=== PATIENT | male | born 1960 | race American Indian/Alaskan Native ===

== ENCOUNTER 2017-01-17 12:29 | Outpatient (CLI) | payer MEDICAID ==
[2017-01-17] MEDS ORDERED: NACL ONE (12:51)
--- NOTE | 2017-01-17 16:29 | Cat Scan Report ---
CT LUMBAR SPINE WITH AND WITHOUT CONTRAST INDICATION: Low back pain. COMPARISON: 07/12/2016. FINDINGS: Lumbar spine CT performed before and after IV contrast. Axial, sagittal and coronal CT reconstructions obtained. Normal conus medullaris appearing to terminate behind L1-L2. NoRMAL vertebral body stature. Approximately 1 mm of anterolisthesis of L4 over L5 questioned. Streak artifact from a horizontal right SI joint fusion screw again limits exam. Right SI joint degenerative bridging noted. Nonaneurysmal abdominal aorta with few atherosclerotic changes. Retroaortic left renal vein. No suspicious abnormal enhancement. On the obtained axial images: T12-L1 is unremarkable. L1-L2, L2-L3 and L3-L4 demonstrate bilateral facet degenerative spurring posteriorly. No spinal stenosis or significant neural foraminal narrowing. AP thecal sac caliber is approximately 1.3 cm, axial image 93, series 4 with preserved posterior epidural fat. L4-L5 demonstrates moderate to severe bilateral facet degenerative changes with spurring, vacuum phenomenon and numerous small lucencies/erosions. Slight diffuse disc bulge minimally indents the thecal sac ventrally with slight undercutting of both neural foramina. AP thecal sac caliber is approximately 1.2 cm axial image 113, series 4. L5-S1 demonstrates mild disc narrowing with vacuum phenomenon. Mild diffuse disc bulge may partly be ventral epidural. Slight bilateral neural foraminal undercutting. AP thecal sac caliber approximately 0.9 cm. Mild bilateral facet degenerative changes noted. CONCLUSION: No acute CT abnormality with various incidental findings, as above, including multilevel lumbar degenerative changes, greatest inferiorly in this patient with stable right SI joint fusion. Thank you for the opportunity to participate in this patient's care.
== END 2017-01-17 12:30 | disposition home or self-care (01) ==
LOC: CT 12:29
PROVIDERS: ATTEND Internal Medicine
DX: M47.896 Other spondylosis, lumbar region (principal)
CPT/HCPCS: 72133; Q9967

== ENCOUNTER 2019-05-27 13:59 | Emergency (ER) | payer MEDICAID ==
--- NOTE | 2019-05-27 14:21 | Emergency Department Report ---
Blank Doc - Documentation Documentation: This is a 59-year-old male that presents with epigastric abdominal pain. This initial assessment/diagnostic orders/clinical plan/treatment(s) is/are subject to change based on patient's health status, clinical progression and re- assessment by fellow clinical providers in the ED. Further treatment and workup at subsequent clinical providers discretion. Patient/guardians urged not to elope from the ED as their condition may be serious if not clinically assessed and managed. Initial orders include: 1- Patient sent to [facility] for further evaluation and treatment 2- labs 3- EKG
[2019-05-27 15:00] LABS: Basophils # (Auto) 0.1 K/mm3 (0.0-0.1); Basophils % (Auto) 1.3 % (0.0-1.8); Eosinophils # (Auto) 0.1 K/mm3 (0.0-0.4); Eosinophils % (Auto) 1.7 % (0.0-4.3); Hematocrit 46.3 % (35.5-45.6); Hemoglobin 15.7 gm/dl (11.8-15.2); Lymphocytes # (Auto) 1.6 K/mm3 (1.2-5.4); Lymphocytes % (Auto) 25.4 % (13.4-35.0); Mean Corpuscular HGB Conc 34 % (32-34); Mean Corpuscular Volume 100 fl (84-94); Monocytes # (Auto) 0.4 K/mm3 (0.0-0.8); Monocytes % (Auto) 6.1 % (0.0-7.3); Platelet Count 262 K/mm3 (140-440); Red Blood Count 4.65 M/mm3 (3.65-5.03); Red Cell Distribution Width 13.6 % (13.2-15.2)
[2019-05-27 15:08] LABS: INR 1.06 (0.87-1.13)
[2019-05-27 15:09] LABS: Partial Thromboplastin Time 29.2 Sec. (24.2-36.6)
[2019-05-27 15:15] LABS: Alanine Aminotransferase 18 units/L (7-56); Albumin 4.1 g/dL (3.9-5); BUN/Creatinine Ratio 8; Blood Urea Nitrogen 8 mg/dL (9-20); Calcium 8.8 mg/dL (8.4-10.2); Hemolysis Index 24
--- NOTE | 2019-05-27 15:21 | XRay Report ---
CHEST 2 VIEWS INDICATION / CLINICAL INFORMATION: Chest Pain. COMPARISON: None available. FINDINGS: SUPPORT DEVICES: None. HEART / MEDIASTINUM: The heart size and pulmonary vasculature are normal. The aorta is normal in maira kaz. LUNGS / PLEURA: No significant pulmonary or pleural abnormality. No pneumothorax. ADDITIONAL FINDINGS: There is mild mid to lower thoracic spondylosis. IMPRESSION: No acute findings. Signer Name: Mark Amaya MD Signed: 05/27/2019 2:17 PM Workstation Name: [id number]
[2019-05-27] MEDS ORDERED: ZOFRAN IV ONE (16:12)
[2019-05-27] MEDS ORDERED: MORPHINE IV ONE (16:12)
--- NOTE | 2019-05-27 17:43 | Cat Scan Report ---
CT abdomen pelvis w con INDICATION / CLINICAL INFORMATION: Severe epigastric pain for 4 days. TECHNIQUE: The patient received 100 cc Omnipaque [address] scans at this location are performed using CT dose reduction for ALARA by means of automated exposure control. COMPARISON: 07/12/2016. FINDINGS: ABDOMEN: The liver, spleen, gallbladder, bile ducts, pancreas, adrenal glands and bowel demonstrate n o significant abnormality. There small bilateral simple renal cysts. No adenopathy is seen. There are mild atherosclerotic calcifications involving the abdominal aorta and its branches. There is a moder ate calcified plaque at the origin of the right renal artery. The left renal vein is retroaortic. The lung bases are clear. PELVIS: The prostate gland is mildly enlarged. The distal ureters and urinary bladder are normal. A n ormal appendix is present and there is no evidence of diverticulitis. I do not identify a hernia. No abnormal mass or fluid collection is seen. There is a long metallic screw traversing the right SI kalia nt superiorly. Sclerotic changes involving both iliac bones inferiorly are chronic and unchanged. The re is moderate degenerative disc disease at L5-S1. IMPRESSION: No acute intra-abdominal disease is identified. Signer Name: Mark Amaya MD Signed: 05/27/2019 4:39 PM Workstation Name: [id number]
--- NOTE | 2019-05-27 18:03 | Emergency Department Report ---
HPI - General Chief Complaint: Chest Pain Time Seen by Provider: 05/27/19 14:18 - HPI HPI: This is a 59-year-old male that presents with epigastric abdominal pain. Patient described pain as a burning, epigastric area, he rates the pain as severe, and is accompanied by nausea, but no vomiting or diarrhea. He admits to daily usage of alcohol. Patient has not taking any medication at home for his symptoms. He states food as an exacerbating factor. He denies any alleviating factors, he denies any recent travel, unusual food, he denies any sick contacts. ED Past Medical Hx - Past Medical History Hx Hypertension: No Hx Diabetes: Yes Additional medical history: Chronic back pain - Surgical History Additional Surgical History: hip repair; lumbar spine surgery after an accident - Social History Smoking Status: Current Every Day Smoker Substance Use Type: Alcohol, Marijuana - Medications Home Medications: Home Medications Medication Instructions Recorded Confirmed Last Taken Type Atenolol [Tenormin] 50 mg PO DAILY 04/01/14 04/01/14 Unknown History Cyclobenzaprine [Flexeril] 10 mg PO Q8H PRN #21 tablet 04/01/14 Unknown Rx Hydrocodone/Ibuprofen [Vicoprofen 1 each PO Q6H PRN #20 tablet 04/01/14 Unknown Rx 200-7.5 mg Tab] Oxycodone HCl [OxyCONTIN] 04/01/14 04/01/14 Unknown History Famotidine [Pepcid] 40 mg PO QHS #30 tablet 05/27/19 Unknown Rx ED Review of Systems ROS: Stated complaint: LOWER CHEST PAIN Other details as noted in HPI Comment: All other systems reviewed and negative Eyes: denies: eye pain ENT: denies: ear pain Respiratory: denies: cough Cardiovascular: denies: chest pain Gastrointestinal: abdominal pain, nausea, vomiting. denies: diarrhea, consti pation, hematemesis Musculoskeletal: denies: back pain Physical Exam - Physical Exam Vital Signs: Vital Signs 05/27/19 14:22 Temperature 97.1 F L Pulse Rate 88 Respiratory 16 Rate Blood Pressure 141/81 O2 Sat by Pulse 97 Oximetry Physical Exam: Physical Exam: - General Limitations: No Limitations General appearance: alert, in no apparent distress. - Head Head exam: Present: atraumatic, normocephalic - Eye Eye exam: Present: normal appearance - ENT ENT exam: Present: mucous membranes moist - Neck Neck exam: Present: normal inspection - Respiratory Respiratory exam: Present: normal lung sounds bilaterally. Absent: respiratory distress - Cardiovascular Cardiovascular Exam: Present: normal rhythm. Absent: systolic murmur, diastolic murmur, rubs, gallop - GI/Abdominal GI/Abdominal exam: Present: soft, normal bowel sounds - Extremities Exam Extremities exam: Present: normal inspection - Back Exam Back exam: Present: normal inspection - Neurological Exam Neurological exam: Present: alert, oriented X3 - Psychiatric Psychiatric exam: normal affect and mood - Skin Skin exam: Present: warm, dry, intact, normal color. Absent: rash ED Course Vital Signs 05/27/19 14:22 Temperature 97.1 F L Pulse Rate 88 Respiratory 16 Rate Blood Pressure 141/81 O2 Sat by Pulse 97 Oximetry ED Medical Decision Making - Lab Data Result diagrams: 05/27/19 14:34 05/27/19 14:34 - EKG Data Rate: normal - EKG Data When compared to previous EKG there are: previous EKG unavailable Interpretation: no acute changes, other 05/27/19 18:03 EKG shows sinus rhythm rate 69, right bundle branch block. abnormal EKG - Medical Decision Making This is a 59-year-old male that presents with epigastric abdominal pain. Patient described pain as a burning, epigastric area, he rates the pain as severe, and is accompanied by nausea, but no vomiting or diarrhea. He admits to daily usage of alcohol. Patient has not taking any medication at home for his symptoms. He states food as an exacerbating factor. He denies any alleviating factors, he denies any recent travel, unusual food, he denies any sick contacts. he was given famotidine iv, ns iv, which resolved his sx. He will be d/c f/u with pcp. Critical care attestation.: If time is entered above; I have spent that time in minutes in the direct care of this critically ill patient, excluding procedure time. ED Disposition Clinical Impression: Gastritis Qualifiers: Gastritis type: other gastritis Chronicity: acute Gastritis bleeding: without bleeding Qualified Code(s): K29.00 - Acute gastritis without bleeding Disposition: - TO HOME OR SELFCARE Is pt being admited?: No Does the pt Need Aspirin: No Condition: Stable Instructions: Gastritis (ED), Gastroesophageal Reflux in Children (ED), Diet for Ulcers and Gastritis (ED) Prescriptions: Famotidine [Pepcid] 40 mg PO QHS #30 tablet Referrals: RYANN WETZEL MD [Primary Care Provider] - 3-5 Days
[2019-05-27 18:15] VITALS: BP 171/86
== END 2019-05-27 18:15 | disposition home or self-care (01) ==
LOC: ED 13:59
DX: K29.70 Gastritis, unspecified, without bleeding (principal); E11.9 Type 2 diabetes mellitus without complications; M54.9 Dorsalgia, unspecified; G89.29 Other chronic pain; F17.200 Nicotine dependence, unspecified, uncomplicated; F12.10 Cannabis abuse, uncomplicated; R11.2 Nausea with vomiting, unspecified; Z98.890 Other specified postprocedural states
CPT/HCPCS: 36415; 71046; 74177; 80053; 82962; 83690; 84484; 85025; 85610; 85730; 93005; 93010; 96374; 96375; 99285; J2270; J2405; Q9967

== ENCOUNTER 2021-08-29 08:06 | Observation (INO) | payer MEDICAID ==
--- NOTE | 2021-08-29 08:19 | Emergency Department Report ---
ED General Adult HPI - General Chief complaint: Weakness Stated complaint: BILATERAL HAND NUMBNESS/WEAKNESS PUI?: No Time Seen by Provider: 08/29/21 08:17 Source: patient, RN notes reviewed, old records reviewed Mode of arrival: Ambulatory Limitations: Physical Limitation - History of Present Illness Initial comments: The patient was evaluated in the emergency department for symptoms described in the history of present illness. He/she was evaluated in the context of the global COVID-19 pandemic, which necessitated consideration that the patient might be at risk for infection with the virus that causes COVID-19. Instituti onal protocols and algorithms that pertain to the evaluation of patients at risk for COVID-19 are in a state of rapid change based on information released by regulatory bodies including the CDC and federal and state organizations. These policies and algorithms were followed during the patient's care in the emergency department. Please note that these policies, procedures and recommendations changed on a rapid basis. Primary CARE doctor: Dr Ramona Hall The patient is a 61-year-old gentleman. He is right-hand dominant, and has a past medical history of diabetes, hypertension, and tobacco use. He is COVID-19 vaccinated. The patient presents to the ER today with complaints of bilateral nontraumatic forearm numbness. He denies weakness. He denies headache, neck pain, chest pain. He endorses that he feels like his breathing is "off", but he denies exertional shortness of breath, vomiting, diaphoresis, and Covid symptomatology. He denies focal extremity weakness. He denies bladder or bowel retention incontinence as well as saddle anesthesia. He denies lower extremity complaints. He also reports that he feels unsteady on his feet for about a week. -: Gradual, days(s) Location: left, right, upper extremity Consistency: constant Improves with: none Worsens with: none - Related Data Home Medications Medication Instructions Recorded Confirmed Last Taken Oxycodone HCl [OxyCONTIN] 04/01/14 04/01/14 Unknown atenoloL [Tenormin] 50 mg PO DAILY 04/01/14 04/01/14 Unknown Previous Rx's Medication Instructions Recorded Last Taken Type Cyclobenzaprine [Flexeril] 10 mg PO Q8H PRN #21 tablet 04/01/14 Unknown Rx Hydrocodone/Ibuprofen [Vicoprofen 1 each PO Q6H PRN #20 tablet 04/01/14 Unknown Rx 200-7.5 mg Tab] Famotidine [Pepcid] 40 mg PO QHS #30 tablet 05/27/19 Unknown Rx Allergies Allergy/AdvReac Type Severity Reaction Status Date / Time acetaminophen [From Tylenol] Allergy Nausea Verified 08/29/21 08:07 pseudoephedrine HCl Allergy Nausea Verified 08/29/21 08:07 [From Sudafed] ED Review of Systems ROS: Stated complaint: BILATERAL HAND NUMBNESS/WEAKNESS Other details as noted in HPI Constitutional: denies: fever Eyes: denies: vision change ENT: denies: epistaxis Respiratory: cough (Chronic cough), shortness of breath Cardiovascular: denies: chest pain Gastrointestinal: denies: nausea, vomiting, hematemesis, melena, hematochezia Genitourinary: denies: dysuria Musculoskeletal: denies: back pain Neurological: numbness, paresthesias, abnormal gait. denies: headache, weakness ED Past Medical Hx - Past Medical History Hx Hypertension: No Hx Diabetes: Yes Additional medical history: Chronic back pain - Surgical History Additional Surgical History: hip repair; lumbar spine surgery after an accident - Social History Smoking Status: Current Every Day Smoker Substance Use Type: Alcohol, Marijuana - Medications Home Medications: Home Medications Medication Instructions Recorded Confirmed Last Taken Type Cyclobenzaprine [Flexeril] 10 mg PO Q8H PRN #21 tablet 04/01/14 Unknown Rx Hydrocodone/Ibuprofen [Vicoprofen 1 each PO Q6H PRN #20 tablet 04/01/14 Unknown Rx 200-7.5 mg Tab] Oxycodone HCl [OxyCONTIN] 04/01/14 04/01/14 Unknown History atenoloL [Tenormin] 50 mg PO DAILY 04/01/14 04/01/14 Unknown History Famotidine [Pepcid] 40 mg PO QHS #30 tablet 05/27/19 Unknown Rx ED Physical Exam - General Limitations: Physical Limitation General appearance: alert, in no apparent distress - Head Head exam: Present: atraumatic, normocephalic - Eye Eye exam: Present: normal appearance, EOMI, other (Visual acuity intact to finger counting, color perception, reading at a close distance). Absent: nystagmus - ENT ENT exam: Present: normal exam, normal orophraynx, mucous membranes moist, normal external ear exam - Neck Neck exam: Present: normal inspection, full ROM. Absent: tenderness, meningismus - Respiratory Respiratory exam: Present: normal lung sounds bilaterally. Absent: respiratory distress, wheezes, rales, rhonchi, stridor, decreased breath sounds - Cardiovascular Cardiovascular Exam: Present: normal rhythm, normal heart sounds. Absent: tachycardia, irregular rhythm, systolic murmur, diastolic murmur, rubs, gallop - GI/Abdominal GI/Abdominal exam: Present: soft. Absent: distended, tenderness, guarding, rebound, rigid, pulsatile mass - Rectal Rectal exam: Present: deferred - Extremities Exam Extremities exam: Present: normal inspection, full ROM, other (2+ pulses noted in the bilateral upper and lower extremities. There is no palpable cord. negative Homans sign. Muscular compartments are soft. The pelvis is stable.). Absent: pedal edema, calf tenderness - Back Exam Back exam: Present: normal inspection. Absent: tenderness, CVA tenderness (R), CVA tenderness (L), paraspinal tenderness, vertebral tenderness - Neurological Exam Neurological exam: Present: alert, oriented X3, abnormal gait (Patient walks w ith a slightly broad-based gait. There is a positive Romberg examination. He is not able to perform tandem gait), motor sensory deficit (Decreased sensation to light touch in the bilateral forearms distal.), reflexes normal (Downgoing plantar reflexes bilaterally), other (There is no facial droop. The tongue is midline. EOMI. Sensation intact to light touch V1, V2, V3 bilaterally. 5 out of 5 strength bilateral upper and lower extremities. Sensation is intact to proprioception in the bilateral upper and lower extremities. Decreased sensation to light touch bilat) - Psychiatric Psychiatric exam: Present: normal affect, normal mood - Skin Skin exam: Present: warm, dry, intact, normal color. Absent: rash ED Course Vital Signs 08/29/21 08:13 Temperature 98.0 F Pulse Rate 65 Respiratory 20 Rate Blood Pressure 148/57 O2 Sat by Pulse 99 Oximetry ED Medical Decision Making - Lab Data Result diagrams: 08/29/21 09:00 08/29/21 09:00 Vital Signs 08/29/21 08:13 Temperature 98.0 F Pulse Rate 65 Respiratory 20 Rate Blood Pressure 148/57 O2 Sat by Pulse 99 Oximetry Lab Results 08/29/21 08/29/21 08/29/21 Range/Units 09:00 09:00 09:00 WBC 4.9 (4.5-11.0) K/mm3 RBC 4.35 (3.65-5.03) M/mm3 Hgb 14.8 (11.8-15.2) gm/dl Hct 43.3 (35.5-45.6) % MCV 100 H (84-94) fl MCH 34 H (28-32) pg MCHC 34 (32-34) % RDW 13.2 (13.2-15.2) % Plt Count 241 (140-440) K/mm3 Lymph % (Auto) 28.1 (13.4-35.0) % Robertson % (Auto) 10.2 H (0.0-7.3) % Eos % (Auto) 6.3 H (0.0-4.3) % Baso % (Auto) 0.3 (0.0-1.8) % Lymph # (Auto) 1.4 (1.2-5.4) K/mm3 Robertson # (Auto) 0.5 (0.0-0.8) K/mm3 Eos # (Auto) 0.3 (0.0-0.4) K/mm3 Baso # (Auto) 0.0 (0.0-0.1) K/mm3 Seg Neutrophils % 55.1 (40.0-70.0) % Seg Neutrophils # 2.7 (1.8-7.7) K/mm3 PT 12.5 (12.2-14.9) Sec. INR 0.89 (0.87-1.13) APTT 34.6 (24.2-36.6) Sec. Thrombin Time 15.8 (15.1-19.6) Sec. Sodium 138 (137-145) mmol/L Potassium 5.0 (3.6-5.0) mmol/L Chloride 101.6 (98-107) mmol/L Carbon Dioxide 25 (22-30) mmol/L Anion Gap 16 mmol/L BUN 10 (9-20) mg/dL Creatinine 0.8 (0.8-1.3) mg/dL Estimated GFR > 60 ml/min BUN/Creatinine Ratio 13 % Glucose 109 H (75-100) mg/dL Calcium 9.8 (8.4-10.2) mg/dL Magnesium (1.7-2.3) mg/dL Total Bilirubin 0.30 (0.1-1.2) mg/dL AST 27 (5-40) units/L ALT 24 (7-56) units/L Alkaline Phosphatase 82 (35-129) units/L Total Creatine Kinase 463 H (55-170) units/L CK-MB (CK-2) 11.7 H (0.0-4.0) ng/mL CK-MB (CK-2) Rel Index 2.5 (0-4) Troponin T < 0.010 (0.00-0.029) ng/mL Total Protein 8.0 (6.3-8.2) g/dL Albumin 4.6 (3.9-5) g/dL Albumin/Globulin Ratio 1.4 % TSH (0.270-4.200) mlU/mL Urine Color (Yellow) Urine Turbidity (Clear) Urine pH (5.0-7.0) Ur Specific [place] (1.003-1.030) Urine Protein (Negative) mg/dL Urine Glucose (UA) (Negative) mg/dL Urine Ketones (Negative) mg/dL Urine Blood (Negative) Urine Nitrite (Negative) Urine Bilirubin (Negative) Urine Urobilinogen (<2.0) mg/dL Ur Leukocyte Esterase (Negative) Urine WBC (Auto) (0.0-6.0) /HPF Urine RBC (Auto) (0.0-6.0) /HPF U Epithel Cells (Auto) (0-13.0) /HPF Urine Mucus /HPF Urine Opiates Screen Urine Methadone Screen Ur Barbiturates Screen Ur Phencyclidine Scrn Ur Amphetamines Screen U Benzodiazepines Scrn Urine Cocaine Screen Plasma/Serum Alcohol (0-0.07) % 08/29/21 08/29/21 08/29/21 Range/Units 09:00 09:00 09:00 WBC (4.5-11.0) K/mm3 RBC (3.65-5.03) M/mm3 Hgb (11.8-15.2) gm/dl Hct (35.5-45.6) % MCV (84-94) fl MCH (28-32) pg MCHC (32-34) % RDW (13.2-15.2) % Plt Count (140-440) K/mm3 Lymph % (Auto) (13.4-35.0) % Robertson % (Auto) (0.0-7.3) % Eos % (Auto) (0.0-4.3) % Baso % (Auto) (0.0-1.8) % Lymph # (Auto) (1.2-5.4) K/mm3 Robertson # (Auto) (0.0-0.8) K/mm3 Eos # (Auto) (0.0-0.4) K/mm3 Baso # (Auto) (0.0-0.1) K/mm3 Seg Neutrophils % (40.0-70.0) % Seg Neutrophils # (1.8-7.7) K/mm3 PT (12.2-14.9) Sec. INR (0.87-1.13) APTT (24.2-36.6) Sec. Thrombin Time (15.1-19.6) Sec. Sodium (137-145) mmol/L Potassium (3.6-5.0) mmol/L Chloride (98-107) mmol/L Carbon Dioxide (22-30) mmol/L Anion Gap mmol/L BUN (9-20) mg/dL Creatinine (0.8-1.3) mg/dL Estimated GFR ml/min BUN/Creatinine Ratio % Glucose (75-100) mg/dL Calcium (8.4-10.2) mg/dL Magnesium 2.20 (1.7-2.3) mg/dL Total Bilirubin (0.1-1.2) mg/dL AST (5-40) units/L ALT (7-56) units/L Alkaline Phosphatase (35-129) units/L Total Creatine Kinase 467 H (55-170) units/L CK-MB (CK-2) (0.0-4.0) ng/mL CK-MB (CK-2) Rel Index (0-4) Troponin T (0.00-0.029) ng/mL Total Protein (6.3-8.2) g/dL Albumin (3.9-5) g/dL Albumin/Globulin Ratio % TSH 0.333 (0.270-4.200) mlU/mL Urine Color (Yellow) Urine Turbidity (Clear) Urine pH (5.0-7.0) Ur Specific [place] (1.003-1.030) Urine Protein (Negative) mg/dL Urine Glucose (UA) (Negative) mg/dL Urine Ketones (Negative) mg/dL Urine Blood (Negative) Urine Nitrite (Negative) Urine Bilirubin (Negative) Urine Urobilinogen (<2.0) mg/dL Ur Leukocyte Esterase (Negative) Urine WBC (Auto) (0.0-6.0) /HPF Urine RBC (Auto) (0.0-6.0) /HPF U Epithel Cells (Auto) (0-13.0) /HPF Urine Mucus /HPF Urine Opiates Screen Urine Methadone Screen Ur Barbiturates Screen Ur Phencyclidine Scrn Ur Amphetamines Screen U Benzodiazepines Scrn Urine Cocaine Screen Plasma/Serum Alcohol < 0.01 (0-0.07) % 08/29/21 08/29/21 Range/Units Unknown Unknown WBC (4.5-11.0) K/mm3 RBC (3.65-5.03) M/mm3 Hgb (11.8-15.2) gm/dl Hct (35.5-45.6) % MCV (84-94) fl MCH (28-32) pg MCHC (32-34) % RDW (13.2-15.2) % Plt Count (140-440) K/mm3 Lymph % (Auto) (13.4-35.0) % Robertson % (Auto) (0.0-7.3) % Eos % (Auto) (0.0-4.3) % Baso % (Auto) (0.0-1.8) % Lymph # (Auto) (1.2-5.4) K/mm3 Robertson # (Auto) (0.0-0.8) K/mm3 Eos # (Auto) (0.0-0.4) K/mm3 Baso # (Auto) (0.0-0.1) K/mm3 Seg Neutrophils % (40.0-70.0) % Seg Neutrophils # (1.8-7.7) K/mm3 PT (12.2-14.9) Sec. INR (0.87-1.13) APTT (24.2-36.6) Sec. Thrombin Time (15.1-19.6) Sec. Sodium (137-145) mmol/L Potassium (3.6-5.0) mmol/L Chloride (98-107) mmol/L Carbon Dioxide (22-30) mmol/L Anion Gap mmol/L BUN (9-20) mg/dL Creatinine (0.8-1.3) mg/dL Estimated GFR ml/min BUN/Creatinine Ratio % Glucose (75-100) mg/dL Calcium (8.4-10.2) mg/dL Magnesium (1.7-2.3) mg/dL Total Bilirubin (0.1-1.2) mg/dL AST (5-40) units/L ALT (7-56) units/L Alkaline Phosphatase (35-129) units/L Total Creatine Kinase (55-170) units/L CK-MB (CK-2) (0.0-4.0) ng/mL CK-MB (CK-2) Rel Index (0-4) Troponin T (0.00-0.029) ng/mL Total Protein (6.3-8.2) g/dL Albumin (3.9-5) g/dL Albumin/Globulin Ratio % TSH (0.270-4.200) mlU/mL Urine Color Yellow (Yellow) Urine Turbidity Clear (Clear) Urine pH 5.0 (5.0-7.0) Ur Specific [place] 1.020 (1.003-1.030) Urine Protein <15 mg/dl (Negative) mg/dL Urine Glucose (UA) Neg (Negative) mg/dL Urine Ketones Neg (Negative) mg/dL Urine Blood Neg (Negative) Urine Nitrite Neg (Negative) Urine Bilirubin Neg (Negative) Urine Urobilinogen < 2.0 (<2.0) mg/dL Ur Leukocyte Esterase Neg (Negative) Urine WBC (Auto) 2.0 (0.0-6.0) /HPF Urine RBC (Auto) 1.0 (0.0-6.0) /HPF U Epithel Cells (Auto) < 1.0 (0-13.0) /HPF Urine Mucus 2+ /HPF Urine Opiates Screen Negative Urine Methadone Screen Negative Ur Barbiturates Screen Negative Ur Phencyclidine Scrn Negative Ur Amphetamines Screen Negative U Benzodiazepines Scrn Negative Urine Cocaine Screen Negative Plasma/Serum Alcohol (0-0.07) % - EKG Data -: EKG Interpreted by In Rate: bradycardia - EKG Data 08/29/21 10:34 The EKG is interpreted at 08: 59 Sinus rhythm, bradycardia, 50 bpm incomplete right bundle branch block, and left ventricular hypertrophy. DC interval within normal limits, QTC 442 ms. Abnormal EKG. Not a STEMI. Unchanged from prior EKG from 05/27/2019 - Radiology Data Radiology results: pending, report reviewed, image reviewed CHEST 2 VIEWS INDICATION: Shortness of breath. COMPARISON: 05/27/2019 FINDINGS: Support devices: None. Heart: Within normal limits. Lungs/pleura: No acute air space or interstitial disease. No pneumothorax. Additional findings: None. IMPRESSION: No acute findings. Signer Name: David Leong Jr, MD Signed: 08/29/2021 8:07 AM Workstation Name: [id number] Noncontrast CT scan of the brain interpreted as negative for acute findings, as per discussion with radiology, [place] [address] Cat Scan Report Signed Patient: YARIEL COY MR#: [id number] : 1960 Acct:[id number] Age/Sex: 61 / M ADM Date: 08/29/21 Loc: ED Attending Dr: Ordering Physician: YOLANDA OROURKE MD Date of Service: 08/29/21 Procedure(s): CT head/brain wo con Accession Number(s): [id number] cc: YOLANDA OROURKE MD CT HEAD WITHOUT CONTRAST INDICATION / CLINICAL INFORMATION: Unsteady gait, bilateral forearm numbness. TECHNIQUE: Axial imaging performed from the skull apex through the skull base without the use of contrast. Sagittal and coronal reformatted images. All CT scans at this location are performed using CT dose reduction for ALARA by means of automated exposure control. COMPARISON: None available. FINDINGS: CEREBRAL PARENCHYMA: No significant abnormality. No acute territorial infarct. HEMORRHAGE: None. EXTRA-AXIAL SPACES: Normal in size and morphology for the patient's age. VENTRICULAR SYSTEM: Normal in size and morphology for the patient's age. MIDLINE SHIFT OR HERNIATION: None. CEREBELLUM / BRAINSTEM: No significant abnormality. CALVARIUM: No significant abnormality. ORBITS: Normal as visualized. PARANASAL SINUSES / MAST OID AIR CELLS: Normal as visualized. SOFT TISSUES of HEAD: No significant abnormality. ADDITIONAL FINDINGS: None. IMPRESSION: No acute intracranial abnormality. Cranial CT scan within normal limits. Signer Name: David Leong Jr, MD Signed: 08/29/2021 10:30 AM Workstation Name: [id number] Transcribed By: TTR Dictated By: DAVID LEONG JR, MD Electronically Authenticated By: DAVID LEONG JR, MD Signed Date/Time: 08/29/211029 DD/ 29 - Medical Decision Making Differential diagnosis, including but not limited to: Subacute stroke, cervical radiculopathy, pneumonia, acute coronary syndrome, COPD, bronchitis, physical deconditioning Assessment and plan: 61-year-old gentleman, with 2 complaints. Complaint #1, bilateral forearm numbness, and unsteady gait for 1 week. Patient has 5 out of 5 strength in the upper and lower extremities, 2+ biceps, triceps, brachioradialis and quadriceps reflexes bilaterally, sensation intact to proprioception in the upper and lower extremities bilaterally, downgoing plantar reflexes bilaterally, and intact sensation to light touch in the bilateral lower extremities, as well as proximal upper extremities. The patient is not a TPA candidate as symptoms are present for greater than 4.5 hours. The patient does not require emergent CT angiographic imaging as symptoms have been present for greater than 24 hours and he reports they have been present for approximately 7 days. Given his strength, and sensory examination, this is very unlikely to represent an acute cord compression. Discussed the patient's history, physical, overall clinical impression with neurology on-call, Dr. Kae Cabrera. Admission is recommended for urgent inpatient acquisition of MRI brain and C- spine. Defer to inpatient team to acquire these. I have recommended this plan of care with the patient. He is agreeable to the aforementioned. Complaints #2, nonspecific discomfort with respiration. EKG unchanged from prior. Saturating at 100% on room air. Is COVID-19 vaccinated, lungs clear, denies DVT and pulmonary embolism risk factors and is low risk by Wells criteria. Tobacco cessation, outpatient follow-up. Hospital physician, Dr. Ramona Manzo to admit to IMS Discussed this plan of care with the patient. He is agreeable to admission. Critical care attestation.: If time is entered above; I have spent that time in minutes in the direct care of this critically ill patient, excluding procedure time. ED Disposition Clinical Impression: Arm numbness, Unsteady gait, Tobacco use, COVID-19 vaccine administered Disposition: 09 ADMITTED INPATIENT Is pt being admited?: Yes Does the pt Need Aspirin: Yes Condition: Good
--- NOTE | 2021-08-29 09:11 | XRay Report ---
CHEST 2 VIEWS INDICATION: Shortness of breath. COMPARISON: 05/27/2019 FINDINGS: Support devices: None. Heart: Within normal limits. Lungs/pleura: No acute air space or interstitial disease. No pneumothorax. Additional findings: None. IMPRESSION: No acute findings. Signer Name: David Leong Jr, MD Signed: 08/29/2021 9:07 AM Workstation Name: [id number]
--- NOTE | 2021-08-29 09:27 | Consultation ---
History of Present Illness - Reason for Consult Consult date: 08/29/21 - History of Present Illness [facility] Consult Note # Demographics Consult Type: General Neurology Patient Location: Emergency Room First Name: Dylan Last Name: Chandler Date of : 1960 Age: 61 Gender: Male Facility: [facility] Time of Initial Page (Eastern Time): 08/29/2021, 09:13 Time of Return Call (Eastern Time): 08/29/2021, 09:13 # HPI History: presents with 1 week of bilateral forearm numbness. He is also having some gait dysfunction, and was not able to walk well with tandem gait. # Assessment Impression: Other sensory complaints w ataxia # Plan Thrombolytic/Intervention: NOT IV Thrombolysis or IA Intervention candidate Thrombolytic Exclusion: > 4.5 hours Intraarterial Exclusion: clinically not consistent with stroke Labs: B12 TSH Imaging: (urgency: routine): MRI Brain without contrast MRI C spine Therapy/Evaluation: PT/OT evaluation Other: I have discussed my recommendations with the referring provider Disposition: admit Medications and Allergies Allergies Allergy/AdvReac Type Severity Reaction Status Date / Time acetaminophen [From Tylenol] Allergy Nausea Verified 08/29/21 08:07 pseudoephedrine HCl Allergy Nausea Verified 08/29/21 08:07 [From Sudafed] Home Medications Medication Instructions Recorded Confirmed Last Taken Type Cyclobenzaprine [Flexeril] 10 mg PO Q8H PRN #21 tablet 04/01/14 Unknown Rx Hydrocodone/Ibuprofen [Vicoprofen 1 each PO Q6H PRN #20 tablet 04/01/14 Unknown Rx 200-7.5 mg Tab] Oxycodone HCl [OxyCONTIN] 04/01/14 04/01/14 Unknown History atenoloL [Tenormin] 50 mg PO DAILY 04/01/14 04/01/14 Unknown History Famotidine [Pepcid] 40 mg PO QHS #30 tablet 05/27/19 Unknown Rx Exam - Constitutional Vitals: Temp Pulse Resp BP Pulse Ox 98.0 F 65 20 148/57 99 08/29/21 08:13 08/29/21 08:13 08/29/21 08:13 08/29/21 08:13 08/29/21 08:13
[2021-08-29 09:28] LABS: Basophils % (Auto) 0.3 % (0.0-1.8); Eosinophils # (Auto) 0.3 K/mm3 (0.0-0.4); Eosinophils % (Auto) 6.3 % (0.0-4.3); Hematocrit 43.3 % (35.5-45.6); Hemoglobin 14.8 gm/dl (11.8-15.2); Lymphocytes # (Auto) 1.4 K/mm3 (1.2-5.4); Lymphocytes % (Auto) 28.1 % (13.4-35.0); Mean Corpuscular HGB Conc 34 % (32-34); Mean Corpuscular Volume 100 fl (84-94); Monocytes # (Auto) 0.5 K/mm3 (0.0-0.8); Monocytes % (Auto) 10.2 % (0.0-7.3); Platelet Count 241 K/mm3 (140-440); Red Blood Count 4.35 M/mm3 (3.65-5.03); Red Cell Distribution Width 13.2 % (13.2-15.2)
[2021-08-29 09:31] LABS: Creatine Kinase MB 11.7 ng/mL (0.0-4.0)
[2021-08-29 09:34] LABS: Alanine Aminotransferase 24 units/L (7-56); Albumin 4.6 g/dL (3.9-5); BUN/Creatinine Ratio 13; Blood Urea Nitrogen 10 mg/dL (9-20); Calcium 9.8 mg/dL (8.4-10.2); Hemolysis Index 11
[2021-08-29 10:04] LABS: INR 0.89 (0.87-1.13)
[2021-08-29 10:05] LABS: Partial Thromboplastin Time 34.6 Sec. (24.2-36.6)
[2021-08-29 10:07] LABS: Bilirubin,Urine NEG (Negative); Blood,Urine NEG (Negative); Color,Urine Yellow (Yellow); Mucus,Urine 2+ /HPF; Protein,Urine <15 mg/dL mg/dL (Negative); Urobilinogen,Urine < 2.0 mg/dL (<2.0)
[2021-08-29 10:09] LABS: Amphetamine Screen,Urine Negative; Benzodiazepines Screen,Urine Negative; Cocaine Screen,Urine Negative; Methadone Screen,Urine Negative; Opiate Screen,Urine Negative
[2021-08-29 10:12] LABS: Thrombin Time 15.8 Sec. (15.1-19.6)
--- NOTE | 2021-08-29 10:35 | Cat Scan Report ---
CT HEAD WITHOUT CONTRAST INDICATION / CLINICAL INFORMATION: Unsteady gait, bilateral forearm numbness. TECHNIQUE: Axial imaging performed from the skull apex through the skull base without the use of cont rast. Sagittal and coronal reformatted images. All CT scans at this location are performed using CT dose reduction for ALARA by means of automated exposure control. COMPARISON: None available. FINDINGS: CEREBRAL PARENCHYMA: No significant abnormality. No acute territorial infarct. HEMORRHAGE: None. EXTRA-AXIAL SPACES: Normal in size and morphology for the patient's age. VENTRICULAR SYSTEM: Normal in size and morphology for the patient's age. MIDLINE SHIFT OR HERNIATION: None. CEREBELLUM / BRAINSTEM: No significant abnormality. CALVARIUM: No significant abnormality. ORBITS: Normal as visualized. PARANASAL SINUSES / MASTOID AIR CELLS: Normal as visualized. SOFT TISSUES of HEAD: No significant abnormality. ADDITIONAL FINDINGS: None. IMPRESSION: No acute intracranial abnormality. Cranial CT scan within normal limits. Signer Name: David Leong Jr, MD Signed: 08/29/2021 10:30 AM Workstation Name: [id number]
[2021-08-29] MEDS ORDERED: ASPIRIN 81 MG TAB CHEW PO ONE (10:39)
[2021-08-29 11:02] LABS: Cannabinoid Screen,Urine PRESUMPTIVE POSITIVE
[2021-08-29 11:03] VITALS: BP 154/57
[2021-08-29] MEDS ORDERED: ONDANSETRON 4 MG/2 ML INJ IV PRN (17:48)
[2021-08-29] MEDS ORDERED: DEXTROSE 50% IN WATER (25GM) 50 ML SYRINGE IV PRN (17:48)
[2021-08-29] MEDS ORDERED: NALOXONE 0.4 MG/1 ML INJ IV PRN (17:48)
[2021-08-29] MEDS ORDERED: IBUPROFEN 400 MG TAB PO PRN (17:54)
--- NOTE | 2021-08-29 18:16 | History and Physical Report ---
History of Present Illness Date of examination: 08/29/21 Date of admission: 08/29/21 10:39 Chief complaint: Numbness in both hands History of present illness: 61-year-old male with history of hypertension, diabetes, chronic pain and GERD comes in for bilateral hand numbness for 2 to 3 days. Also shortness of breath sometimes. No nausea no vomiting. He also feels unsteady on his feet for about a week. He denies any bladder or bowel retention/incontinence and as well as/saddle anesthesia. Patient is COVID-19 vaccinated. - Past Medical History --Hypertension: No --Diabetes: Yes Additional medical history: Chronic back pain - Surgical History --Hip repair; lumbar spine surgery after an accident - Social History Smoking Status: Current Every Day Smoker Substance Use Type: Alcohol, Marijuana - Medications Home Medications: Home Medications Medication Instructions Recorded Confirmed Last Taken Type Cyclobenzaprine [Flexeril] 10 mg PO Q8H PRN #21 tablet 04/01/14 Unknown Rx Hydrocodone/Ibuprofen [Vicoprofen 1 each PO Q6H PRN #20 tablet 04/01/14 Unknown Rx 200-7.5 mg Tab] Oxycodone HCl [OxyCONTIN] 04/01/14 04/01/14 Unknown History atenoloL [Tenormin] 50 mg PO DAILY 04/01/14 04/01/14 Unknown History Famotidine [Pepcid] 40 mg PO QHS #30 tablet 05/27/19 Unknown Rx Review of Systems ROS: Stated complaint: BILATERAL HAND NUMBNESS/WEAKNESS Other details as noted in HPI Constitutional: denies: fever Eyes: denies: vision change ENT: denies: epistaxis Respiratory: cough (Chronic cough), shortness of breath Cardiovascular: denies: chest pain Gastrointestinal: denies: nausea, vomiting, hematemesis, melena, hematochezia Genitourinary: denies: dysuria Musculoskeletal: denies: back pain Neurological: numbness, paresthesias, abnormal gait. denies: headache, weakness Medications and Allergies Allergies Allergy/AdvReac Type Severity Reaction Status Date / Time acetaminophen [From Tylenol] Allergy Nausea Verified 08/29/21 08:07 pseudoephedrine HCl Allergy Nausea Verified 08/29/21 08:07 [From Sudafed] Home Medications Medication Instructions Recorded Confirmed Last Taken Type Cyclobenzaprine [Flexeril] 10 mg PO Q8H PRN #21 tablet 04/01/14 Unknown Rx Hydrocodone/Ibuprofen [Vicoprofen 1 each PO Q6H PRN #20 tablet 04/01/14 Unknown Rx 200-7.5 mg Tab] Oxycodone HCl [OxyCONTIN] 04/01/14 04/01/14 Unknown History atenoloL [Tenormin] 50 mg PO DAILY 04/01/14 04/01/14 Unknown History Famotidine [Pepcid] 40 mg PO QHS #30 tablet 05/27/19 Unknown Rx Active Meds: Active Medications Atorvastatin Calcium (Atorvastatin 40 Mg Tab) 40 mg PO QHS RILEY Dextrose (Dextrose 50% In Water (25gm) 50 Ml Syringe) 50 ml IV Q30MIN PRN; Protocol PRN Reason: Hypoglycemia Famotidine (Famotidine 20 Mg Tab) 40 mg PO QHS RILEY Heparin Sodium (Porcine) (Heparin 5,000 Unit/1 Ml Vial) 5,000 unit SUB-Q Q8HR RILEY Ibuprofen (Ibuprofen 400 Mg Tab) 400 mg PO Q6H PRN PRN Reason: Pain, Mild (1-3) Insulin Human Lispro (Insulin Lispro 100 Unit/Ml) 0 unit SUB-Q ACHS RILEY; Protoc ol Naloxone HCl (Naloxone 0.4 Mg/1 Ml Inj) 0.1 mg IV Q2MIN PRN PRN Reason: Res Rate </= 8 or 02 SAT < 92% Ondansetron HCl (Ondansetron 4 Mg/2 Ml Inj) 4 mg IV Q8H PRN PRN Reason: Nausea And Vomiting Sodium Chloride (Sodium Chloride 0.9% 10 Ml Flush Syringe) 10 ml IV BID RILEY Sodium Chloride (Sodium Chloride 0.9% 10 Ml Flush Syringe) 10 ml IV PRN PRN PRN Reason: LINE FLUSH Exam - Constitutional Vitals: Temp Pulse Resp BP Pulse Ox 98.0 F 58 L 18 154/57 100 08/29/21 08:13 08/29/21 10:59 08/29/21 10:59 08/29/21 10:59 08/29/21 10:59 General appearance: Present: no acute distress, well-nourished - EENT Eyes: Present: PERRL ENT: hearing intact, clear oral mucosa - Neck Neck: Present: supple, normal ROM - Respiratory Respiratory effort: normal Respiratory: bilateral: CTA - Cardiovascular Heart rate: 78 Rhythm: regular Heart Sounds: Present: S1 & S2. Absent: rub, click - Extremities Extremities: no ischemia, pulses symmetrical, No edema Peripheral Pulses: within normal limits - Abdominal General gastrointestinal: Present: soft, non-tender, non-distended, normal bowel sounds Male genitourinary: Present: normal - Integumentary Integumentary: Present: clear, warm, dry - Musculoskeletal Musculoskeletal: gait normal, strength equal bilaterally - Psychiatric Psychiatric: appropriate mood/affect, intact judgment & insight - Neurologic Neurologic: CNII-XII intact, moves all extremities, other (Sensory system is normal.) HEART Score - HEART Score Troponin: Troponin T < 0.010 ng/mL (0.00-0.029) 08/29/21 09:00 Results - Labs CBC & Chem 7: 08/29/21 09:00 08/29/21 09:00 Labs: Laboratory Last Values WBC 4.9 K/mm3 (4.5-11.0) 08/29/21 09:00 RBC 4.35 M/mm3 (3.65-5.03) 08/29/21 09:00 Hgb 14.8 gm/dl (11.8-15.2) 08/29/21 09:00 Hct 43.3 % (35.5-45.6) 08/29/21 09:00 MCV 100 fl (84-94) H 08/29/21 09:00 MCH 34 pg (28-32) H 08/29/21 09:00 MCHC 34 % (32-34) 08/29/21 09:00 RDW 13.2 % (13.2-15.2) 08/29/21 09:00 Plt Count 241 K/mm3 (140-440) 08/29/21 09:00 Lymph % (Auto) 28.1 % (13.4-35.0) 08/29/21 09:00 [place] % (Auto) 10.2 % (0.0-7.3) H 08/29/21 09:00 Eos % (Auto) 6.3 % (0.0-4.3) H 08/29/21 09:00 Baso % (Auto) 0.3 % (0.0-1.8) 08/29/21 09:00 Lymph # (Auto) 1.4 K/mm3 (1.2-5.4) 08/29/21 09:00 [place] # (Auto) 0.5 K/mm3 (0.0-0.8) 08/29/21 09:00 Eos # (Auto) 0.3 K/mm3 (0.0-0.4) 08/29/21 09:00 Baso # (Auto) 0.0 K/mm3 (0.0-0.1) 08/29/21 09:00 Seg Neutrophils % 55.1 % (40.0-70.0) 08/29/21 09:00 Seg Neutrophils # 2.7 K/mm3 (1.8-7.7) 08/29/21 09:00 PT 12.5 Sec. (12.2-14.9) 08/29/21 09:00 INR 0.89 (0.87-1.13) 08/29/21 09:00 APTT 34.6 Sec. (24.2-36.6) 08/29/21 09:00 Thrombin Time 15.8 Sec. (15.1-19.6) 08/29/21 09:00 Sodium 138 mmol/L (137-145) 08/29/21 09:00 Potassium 5.0 mmol/L (3.6-5.0) 08/29/21 09:00 Chloride 101.6 mmol/L (98-107) 08/29/21 09:00 Carbon Dioxide 25 mmol/L (22-30) 08/29/21 09:00 Anion Gap 16 mmol/L 08/29/21 09:00 BUN 10 mg/dL (9-20) 08/29/21 09:00 Creatinine 0.8 mg/dL (0.8-1.3) 08/29/21 09:00 Estimated GFR > 60 ml/min 08/29/21 09:00 BUN/Creatinine Ratio 13 % 08/29/21 09:00 Glucose 109 mg/dL (75-100) H 08/29/21 09:00 Calcium 9.8 mg/dL (8.4-10.2) 08/29/21 09:00 Magnesium 2.20 mg/dL (1.7-2.3) 08/29/21 09:00 Total Bilirubin 0.30 mg/dL (0.1-1.2) 08/29/21 09:00 AST 27 units/L (5-40) 08/29/21 09:00 ALT 24 units/L (7-56) 08/29/21 09:00 Alkaline Phosphatase 82 units/L (35-129) 08/29/21 09:00 Total Creatine Kinase 463 units/L (55-170) H 08/29/21 09:00 Total Creatine Kinase 467 units/L (55-170) H 08/29/21 09:00 CK-MB (CK-2) 11.7 ng/mL (0.0-4.0) H 08/29/21 09:00 CK-MB (CK-2) Rel Index 2.5 (0-4) 08/29/21 09:00 Troponin T < 0.010 ng/mL (0.00-0.029) 08/29/21 09:00 Total Protein 8.0 g/dL (6.3-8.2) 08/29/21 09:00 Albumin 4.6 g/dL (3.9-5) 08/29/21 09:00 Albumin/Globulin Ratio 1.4 % 08/29/21 09:00 TSH 0.333 mlU/mL (0.270-4.200) 08/29/21 09:00 Urine Color Yellow (Yellow) 08/29/21 Unknown Urine Turbidity Clear (Clear) 08/29/21 Unknown Urine pH 5.0 (5.0-7.0) 08/29/21 Unknown Ur Specific [place] 1.020 (1.003-1.030) 08/29/21 Unknown Urine Protein <15 mg/dl mg/dL (Negative) 08/29/21 Unknown Urine Glucose (UA) Neg mg/dL (Negative) 08/29/21 Unknown Urine Ketones Neg mg/dL (Negative) 08/29/21 Unknown Urine Blood Neg (Negative) 08/29/21 Unknown Urine Nitrite Neg (Negative) 08/29/21 Unknown Urine Bilirubin Neg (Negative) 08/29/21 Unknown Urine Urobilinogen < 2.0 mg/dL (<2.0) 08/29/21 Unknown Ur Leukocyte Esterase Neg (Negative) 08/29/21 Unknown Urine WBC (Auto) 2.0 /HPF (0.0-6.0) 08/29/21 Unknown Urine RBC (Auto) 1.0 /HPF (0.0-6.0) 08/29/21 Unknown U Epithel Cells (Auto) < 1.0 /HPF (0-13.0) 08/29/21 Unknown Urine Mucus 2+ /HPF 08/29/21 Unknown Urine Opiates Screen Negative 08/29/21 Unknown Urine Methadone Screen Negative 08/29/21 Unknown Ur Barbiturates Screen Negative 08/29/21 Unknown Ur Phencyclidine Scrn Negative 08/29/21 Unknown Ur Amphetamines Screen Negative 08/29/21 Unknown U Benzodiazepines Scrn Negative 08/29/21 Unknown Urine Cocaine Screen Negative 08/29/21 Unknown U Marijuana (THC) Screen Presumptive positive 08/29/21 Unknown Drugs of Abuse Note Disclamer 08/29/21 Unknown Plasma/Serum Alcohol < 0.01 % (0-0.07) 08/29/21 09:00 Short CBC 08/29/21 Range/Units 09:00 WBC 4.9 (4.5-11.0) K/mm3 Hgb 14.8 (11.8-15.2) gm/dl Hct 43.3 (35.5-45.6) % Plt Count 241 (140-440) K/mm3 BMP 08/29/21 09:00 Sodium 138 Potassium 5.0 Chloride 101.6 Carbon Dioxide 25 BUN 10 Creatinine 0.8 Glucose 109 H Calcium 9.8 Cardiac Enzymes 08/29/21 08/29/21 Range/Units 09:00 09:00 Total Creatine Kinase 463 H 467 H (55-170) units/L CK-MB (CK-2) 11.7 H (0.0-4.0) ng/mL Troponin T < 0.010 (0.00-0.029) ng/mL Liver Function 08/29/21 Range/Units 09:00 Total Bilirubin 0.30 (0.1-1.2) mg/dL AST 27 (5-40) units/L ALT 24 (7-56) units/L Alkaline Phosphatase 82 (35-129) units/L Albumin 4.6 (3.9-5) g/dL Urine 08/29/21 Range/Units Unknown Urine Color Yellow (Yellow) Urine pH 5.0 (5.0-7.0) Ur Specific [place] 1.020 (1.003-1.030) Urine Protein <15 mg/dl (Negative) mg/dL Urine Glucose (UA) Neg (Negative) mg/dL Short CBC 08/29/21 Range/Units 09:00 WBC 4.9 (4.5-11.0) K/mm3 Hgb 14.8 (11.8-15.2) gm/dl Hct 43.3 (35.5-45.6) % Plt Count 241 (140-440) K/mm3 BMP 08/29/21 09:00 Sodium 138 Potassium 5.0 Chloride 101.6 Carbon Dioxide 25 BUN 10 Creatinine 0.8 Glucose 109 H Calcium 9.8 Cardiac Enzymes 08/29/21 08/29/21 Range/Units 09:00 09:00 Total Creatine Kinase 463 H 467 H (55-170) units/L CK-MB (CK-2) 11.7 H (0.0-4.0) ng/mL Troponin T < 0.010 (0.00-0.029) ng/mL Liver Function 08/29/21 Range/Units 09:00 Total Bilirubin 0.30 (0.1-1.2) mg/dL AST 27 (5-40) units/L ALT 24 (7-56) units/L Alkaline Phosphatase 82 (35-129) units/L Albumin 4.6 (3.9-5) g/dL Urine 08/29/21 Range/Units Unknown Urine Color Yellow (Yellow) Urine pH 5.0 (5.0-7.0) Ur Specific [place] 1.020 (1.003-1.030) Urine Protein <15 mg/dl (Negative) mg/dL Urine Glucose (UA) Neg (Negative) mg/dL - Imaging and Cardiology EKG: report reviewed (Sinus rhythm no acute ST-T wave changes) Imaging and Cardiology: Chest x-ray No acute findings Head CT No acute intracranial abnormalities Assessment and Plan Advance Directives: Yes - Patient Problems (1) Cervical radiculopathy Current Visit: Yes Status: Acute Plan to address problem: Patient may be having cervical radiculopathy versus cervical myelopathy MRI C-spine Neurology consult requested MRI brain order was removed Clinical picture does not fit with any brain lesion (2) Unsteady gait Current Visit: Yes Status: Acute Plan to address problem: Rule out cervical myelopathy and radiculopathy (3) COVID-19 vaccine administered Current Visit: Yes Status: Acute Plan to address problem: Patient had COVID-19 vaccination (4) T2DM (type 2 diabetes mellitus) Current Visit: Yes Status: Acute Plan to address problem: Coverage for now and check hemoglobin A1c (5) Hypertension Current Visit: Yes Status: Chronic Qualifiers: Hypertension type: primary hypertension Qualified Code(s): I10 - Essential (primary) hypertension Plan to address problem: Continue atenolol and adjust medications as necessary (6) Chronic pain Current Visit: Yes Status: Chronic Qualifiers: Chronic pain type: chronic pain syndrome Qualified Code(s): G89.4 - Chronic pain syndrome Plan to address problem: Pain medication as needed Patient to follow-up with pain management as outpatient (7) DVT prophylaxis Current Visit: Yes Status: Acute Plan to address problem: On anticoagulation and GI prophylaxis
[2021-08-29] MEDS ORDERED: CYCLOBENZAPRINE 10 MG TAB PO PRN (18:20)
[2021-08-29] MEDS ORDERED: atenoloL 50 MG TAB PO SCH (19:00)
[2021-08-29] MEDS ORDERED: FAMOTIDINE 20 MG TAB PO SCH (22:00)
[2021-08-29] MEDS ORDERED: NON-FORMULARY EACH (Famotidine [Pepcid] 40 MG Tablet) PO SCH (22:00)
[2021-08-29] MEDS ORDERED: INSULIN LISPRO 100 UNIT/ML SUB-Q SCH (22:00)
[2021-08-29] MEDS ORDERED: HEPARIN 5,000 UNIT/1 ML VIAL SUB-Q SCH (22:00)
--- NOTE | 2021-08-30 08:58 | Consultation ---
History of Present Illness Consult date: 08/30/21 Reason for Consult: hands numbness and unsteady gait History of present illness: Numbness in both hands History of present illness: 61-year-old male with history of hypertension, diabetes, chronic pain and GERD comes in for bilateral hand numbness for 2 to 3 days. Also shortness of breath sometimes. No nausea no vomiting. He also feels unsteady on his feet for about a week. He denies any bladder or bowel retention/incontinence and as well as/saddle anesthesia. Patient is COVID-19 vaccinated. - Past Medical History --Hypertension: No --Diabetes: Yes Additional medical history: Chronic back pain - Surgical History --Hip repair; lumbar spine surgery after an accident - Social History Smoking Status: Current Every Day Smoker Substance Use Type: Alcohol, Marijuana - Medications Home Medications: Home Medications Medication Instructions Recorded Confirmed Last Taken Type Cyclobenzaprine [Flexeril] 10 mg PO Q8H PRN #21 tablet 04/01/14 Unknown Rx Hydrocodone/Ibuprofen [Vicoprofen 1 each PO Q6H PRN #20 tablet 04/01/14 Unknown Rx 200-7.5 mg Tab] Oxycodone HCl [OxyCONTIN] 04/01/14 04/01/14 Unknown History atenoloL [Tenormin] 50 mg PO DAILY 04/01/14 04/01/14 Unknown History Famotidine [Pepcid] 40 mg PO QHS #30 tablet 05/27/19 Unknown Rx Review of Systems ROS: Stated complaint: BILATERAL HAND NUMBNESS/WEAKNESS Other details as noted in HPI Constitutional: denies: fever Eyes: denies: vision change ENT: denies: epistaxis Respiratory: cough (Chronic cough), shortness of breath Cardiovascular: denies: chest pain Gastrointestinal: denies: nausea, vomiting, hematemesis, melena, hematochezia Genitourinary: denies: dysuria Musculoskeletal: denies: back pain Neurological: numbness, paresthesias, abnormal gait. denies: headache, weakness Medications and Allergies Allergies Allergy/AdvReac Type Severity Reaction Status Date / Time acetaminophen [From Tylenol] Allergy Nausea Verified 08/29/21 08:07 pseudoephedrine HCl Allergy Nausea Verified 08/29/21 08:07 [From Sudafed] Home Medications Medication Instructions Recorded Confirmed Last Taken Type Cyclobenzaprine [Flexeril] 10 mg PO Q8H PRN #21 tablet 04/01/14 Unknown Rx Hydrocodone/Ibuprofen [Vicoprofen 1 each PO Q6H PRN #20 tablet 04/01/14 Unknown Rx 200-7.5 mg Tab] Oxycodone HCl [OxyCONTIN] 04/01/14 04/01/14 Unknown History atenoloL [Tenormin] 50 mg PO DAILY 04/01/14 04/01/14 Unknown History Famotidine [Pepcid] 40 mg PO QHS #30 tablet 05/27/19 Unknown Rx Active Meds: Active Medications Atorvastatin Calcium (Atorvastatin 40 Mg Tab) 40 mg PO QHS [facility] Dextrose (Dextrose 50% In Water (25gm) 50 Ml Syringe) 50 ml IV Q30MIN PRN; Protocol PRN Reason: Hypoglycemia Famotidine (Famotidine 20 Mg Tab) 40 mg PO QHS [facility] Heparin Sodium (Porcine) (Heparin 5,000 Unit/1 Ml Vial) 5,000 unit SUB-Q Q8HR [facility] Ibuprofen (Ibuprofen 400 Mg Tab) 400 mg PO Q6H PRN PRN Reason: Pain, Mild (1-3) Insulin Human Lispro (Insulin Lispro 100 Unit/Ml) 0 unit SUB-Q ACHS [facility]; Protocol Naloxone HCl (Naloxone 0.4 Mg/1 Ml Inj) 0.1 mg IV Q2MIN PRN PRN Reason: Res Rate </= 8 or 02 SAT < 92% Ondansetron HCl (Ondansetron 4 Mg/2 Ml Inj) 4 mg IV Q8H PRN PRN Reason: Nausea And Vomiting Sodium Chloride (Sodium Chloride 0.9% 10 Ml Flush Syringe) 10 ml IV BID [facility] Sodium Chloride (Sodium Chloride 0.9% 10 Ml Flush Syringe) 10 ml IV PRN PRN PRN Reason: LINE FLUSH Exam - Constitutional Vitals: Temp Pulse Resp BP Pulse Ox 98.0 F 58 L 18 154/57 100 08/29/21 08:13 08/29/21 10:59 08/29/21 10:59 08/29/21 10:59 08/29/21 10:59 General appearance: Present: no acute distress, well-nourished - EENT Eyes: Present: PERRL ENT: hearing intact, clear oral mucosa - Neck Neck: Present: supple, normal ROM - Respiratory Respiratory effort: normal Respiratory: bilateral: CTA - Cardiovascular Heart rate: 78 Rhythm: regular Heart Sounds: Present: S1 & S2. Absent: rub, click - Extremities Extremities: no ischemia, pulses symmetrical, No edema Peripheral Pulses: within normal limits - Abdominal General gastrointestinal: Present: soft, non-tender, non-distended, normal bowel sounds Male genitourinary: Present: normal - Integumentary Integumentary: Present: clear, warm, dry - Musculoskeletal Musculoskeletal: gait normal, strength equal bilaterally - Psychiatric Psychiatric: appropriate mood/affect, intact judgment & insight - Neurologic Neurologic: CNII-XII intact, moves all extremities, other (Sensory system is normal.) HEART Score - HEART Score Troponin: Troponin T < 0.010 ng/mL (0.00-0.029) 08/29/21 09:00 Results - Labs CBC & Chem 7: 08/29/21 09:00 08/29/21 09:00 Labs: Laboratory Last Values WBC 4.9 K/mm3 (4.5-11.0) 08/29/21 09:00 RBC 4.35 M/mm3 (3.65-5.03) 08/29/21 09:00 Hgb 14.8 gm/dl (11.8-15.2) 08/29/21 09:00 Hct 43.3 % (35.5-45.6) 08/29/21 09:00 MCV 100 fl (84-94) H 08/29/21 09:00 MCH 34 pg (28-32) H 08/29/21 09:00 MCHC 34 % (32-34) 08/29/21 09:00 RDW 13.2 % (13.2-15.2) 08/29/21 09:00 Plt Count 241 K/mm3 (140-440) 08/29/21 09:00 Lymph % (Auto) 28.1 % (13.4-35.0) 08/29/21 09:00 [place] % (Auto) 10.2 % (0.0-7.3) H 08/29/21 09:00 Eos % (Auto) 6.3 % (0.0-4.3) H 08/29/21 09:00 Baso % (Auto) 0.3 % (0.0-1.8) 08/29/21 09:00 Lymph # (Auto) 1.4 K/mm3 (1.2-5.4) 08/29/21 09:00 [place] # (Auto) 0.5 K/mm3 (0.0-0.8) 08/29/21 09:00 Eos # (Auto) 0.3 K/mm3 (0.0-0.4) 08/29/21 09:00 Baso # (Auto) 0.0 K/mm3 (0.0-0.1) 08/29/21 09:00 Seg Neutrophils % 55.1 % (40.0-70.0) 08/29/21 09:00 Seg Neutrophils # 2.7 K/mm3 (1.8-7.7) 08/29/21 09:00 PT 12.5 Sec. (12.2-14.9) 08/29/21 09:00 INR 0.89 (0.87-1.13) 08/29/21 09:00 APTT 34.6 Sec. (24.2-36.6) 08/29/21 09:00 Thrombin Time 15.8 Sec. (15.1-19.6) 08/29/21 09:00 Sodium 138 mmol/L (137-145) 08/29/21 09:00 Potassium 5.0 mmol/L (3.6-5.0) 08/29/21 09:00 Chloride 101.6 mmol/L (98-107) 08/29/21 09:00 Carbon Dioxide 25 mmol/L (22-30) 08/29/21 09:00 Anion Gap 16 mmol/L 08/29/21 09:00 BUN 10 mg/dL (9-20) 08/29/21 09:00 Creatinine 0.8 mg/dL (0.8-1.3) 08/29/21 09:00 Estimated GFR > 60 ml/min 08/29/21 09:00 BUN/Creatinine Ratio 13 % 08/29/21 09:00 Glucose 109 mg/dL (75-100) H 08/29/21 09:00 Calcium 9.8 mg/dL (8.4-10.2) 08/29/21 09:00 Magnesium 2.20 mg/dL (1.7-2.3) 08/29/21 09:00 Total Bilirubin 0.30 mg/dL (0.1-1.2) 08/29/21 09:00 AST 27 units/L (5-40) 08/29/21 09:00 ALT 24 units/L (7-56) 08/29/21 09:00 Alkaline Phosphatase 82 units/L (35-129) 08/29/21 09:00 Total Creatine Kinase 463 units/L (55-170) H 08/29/21 09:00 Total Creatine Kinase 467 units/L (55-170) H 08/29/21 09:00 CK-MB (CK-2) 11.7 ng/mL (0.0-4.0) H 08/29/21 09:00 CK-MB (CK-2) Rel Index 2.5 (0-4) 08/29/21 09:00 Troponin T < 0.010 ng/mL (0.00-0.029) 08/29/21 09:00 Total Protein 8.0 g/dL (6.3-8.2) 08/29/21 09:00 Albumin 4.6 g/dL (3.9-5) 08/29/21 09:00 Albumin/Globulin Ratio 1.4 % 08/29/21 09:00 TSH 0.333 mlU/mL (0.270-4.200) 08/29/21 09:00 Urine Color Yellow (Yellow) 08/29/21 Unknown Urine Turbidity Clear (Clear) 08/29/21 Unknown Urine pH 5.0 (5.0-7.0) 08/29/21 Unknown Ur Specific [place] 1.020 (1.003-1.030) 08/29/21 Unknown Urine Protein <15 mg/dl mg/dL (Negative) 08/29/21 Unknown Urine Glucose (UA) Neg mg/dL (Negative) 08/29/21 Unknown Urine Ketones Neg mg/dL (Negative) 08/29/21 Unknown Urine Blood Neg (Negative) 08/29/21 Unknown Urine Nitrite Neg (Negative) 08/29/21 Unknown Urine Bilirubin Neg (Negative) 08/29/21 Unknown Urine Urobilinogen < 2.0 mg/dL (<2.0) 08/29/21 Unknown Ur Leukocyte Esterase Neg (Negative) 08/29/21 Unknown Urine WBC (Auto) 2.0 /HPF (0.0-6.0) 08/29/21 Unknown Urine RBC (Auto) 1.0 /HPF (0.0-6.0) 08/29/21 Unknown U Epithel Cells (Auto) < 1.0 /HPF (0-13.0) 08/29/21 Unknown Urine Mucus 2+ /HPF 08/29/21 Unknown Urine Opiates Screen Negative 08/29/21 Unknown Urine Methadone Screen Negative 08/29/21 Unknown Ur Barbiturates Screen Negative 08/29/21 Unknown Ur Phencyclidine Scrn Negative 08/29/21 Unknown Ur Amphetamines Screen Negative 08/29/21 Unknown U Benzodiazepines Scrn Negative 08/29/21 Unknown Urine Cocaine Screen Negative 08/29/21 Unknown U Marijuana (THC) Screen Presumptive positive 08/29/21 Unknown Drugs of Abuse Note Disclamer 08/29/21 Unknown Plasma/Serum Alcohol < 0.01 % (0-0.07) 08/29/21 09:00 Short CBC 08/29/21 Range/Units 09:00 WBC 4.9 (4.5-11.0) K/mm3 Hgb 14.8 (11.8-15.2) gm/dl Hct 43.3 (35.5-45.6) % Plt Count 241 (140-440) K/mm3 BMP 08/29/21 09:00 Sodium 138 Potassium 5.0 Chloride 101.6 Carbon Dioxide 25 BUN 10 Creatinine 0.8 Glucose 109 H Calcium 9.8 Cardiac Enzymes 08/29/21 08/29/21 Range/Units 09:00 09:00 Total Creatine Kinase 463 H 467 H (55-170) units/L CK-MB (CK-2) 11.7 H (0.0-4.0) ng/mL Troponin T < 0.010 (0.00-0.029) ng/mL Liver Function 08/29/21 Range/Units 09:00 Total Bilirubin 0.30 (0.1-1.2) mg/dL AST 27 (5-40) units/L ALT 24 (7-56) units/L Alkaline Phosphatase 82 (35-129) units/L Albumin 4.6 (3.9-5) g/dL Urine 08/29/21 Range/Units Unknown Urine Color Yellow (Yellow) Urine pH 5.0 (5.0-7.0) Ur Specific [place] 1.020 (1.003-1.030) Urine Protein <15 mg/dl (Negative) mg/dL Urine Glucose (UA) Neg (Negative) mg/dL Short CBC 08/29/21 Range/Units 09:00 WBC 4.9 (4.5-11.0) K/mm3 Hgb 14.8 (11.8-15.2) gm/dl Hct 43.3 (35.5-45.6) % Plt Count 241 (140-440) K/mm3 BMP 08/29/21 09:00 Sodium 138 Potassium 5.0 Chloride 101.6 Carbon Dioxide 25 BUN 10 Creatinine 0.8 Glucose 109 H Calcium 9.8 Cardiac Enzymes 08/29/21 08/29/21 Range/Units 09:00 09:00 Total Creatine Kinase 463 H 467 H (55-170) units/L CK-MB (CK-2) 11.7 H (0.0-4.0) ng/mL Troponin T < 0.010 (0.00-0.029) ng/mL Liver Function 08/29/21 Range/Units 09:00 Total Bilirubin 0.30 (0.1-1.2) mg/dL AST 27 (5-40) units/L ALT 24 (7-56) units/L Alkaline Phosphatase 82 (35-129) units/L Albumin 4.6 (3.9-5) g/dL Urine 08/29/21 Range/Units Unknown Urine Color Yellow (Yellow) Urine pH 5.0 (5.0-7.0) Ur Specific [place] 1.020 (1.003-1.030) Urine Protein <15 mg/dl (Negative) mg/dL Urine Glucose (UA) Neg (Negative) mg/dL - Imaging and Cardiology EKG: report reviewed (Sinus rhythm no acute ST-T wave changes) Imaging and Cardiology: Chest x-ray No acute findings Head CT No acute intracranial abnormalities Medications and Allergies Allergies Allergy/AdvReac Type Severity Reaction Status Date / Time acetaminophen [From Tylenol] Allergy Nausea Verified 08/29/21 08:07 pseudoephedrine HCl Allergy Nausea Verified 08/29/21 08:07 [From Sudafed] Home Medications Medication Instructions Recorded Confirmed Last Taken Type Cyclobenzaprine [Flexeril] 10 mg PO Q8H PRN #21 tablet 04/01/14 Unknown Rx Hydrocodone/Ibuprofen [Vicoprofen 1 each PO Q6H PRN #20 tablet 04/01/14 Unknown Rx 200-7.5 mg Tab] Oxycodone HCl [OxyCONTIN] 04/01/14 04/01/14 Unknown History atenoloL [Tenormin] 50 mg PO DAILY 04/01/14 04/01/14 Unknown History Famotidine [Pepcid] 40 mg PO QHS #30 tablet 05/27/19 Unknown Rx Active Meds: Active Medications Atenolol (Atenolol 50 Mg Tab) 50 mg PO DAILY [facility] Atorvastatin Calcium (Atorvastatin 40 Mg Tab) 40 mg PO QHS [facility] Cyclobenzaprine HCl (Cyclobenzaprine 10 Mg Tab) 10 mg PO Q8H PRN PRN Reason: Muscle Spasm Dextrose (Dextrose 50% In Water (25gm) 50 Ml Syringe) 50 ml IV Q30MIN PRN; Protocol PRN Reason: Hypoglycemia Famotidine (Famotidine 20 Mg Tab) 40 mg PO QHS [facility] Heparin Sodium (Porcine) (Heparin 5,000 Unit/1 Ml Vial) 5,000 unit SUB-Q Q8HR [facility] Ibuprofen (Ibuprofen 400 Mg Tab) 400 mg PO Q6H PRN PRN Reason: Pain, Mild (1-3) Insulin Human Lispro (Insulin Lispro 100 Unit/Ml) 0 unit SUB-Q ACHS [facility]; Protocol Naloxone HCl (Naloxone 0.4 Mg/1 Ml Inj) 0.1 mg IV Q2MIN PRN PRN Reason: Res Rate </= 8 or 02 SAT < 92% Ondansetron HCl (Ondansetron 4 Mg/2 Ml Inj) 4 mg IV Q8H PRN PRN Reason: Nausea And Vomiting Sodium Chloride (Sodium Chloride 0.9% 10 Ml Flush Syringe) 10 ml IV BID [facility] Sodium Chloride (Sodium Chloride 0.9% 10 Ml Flush Syringe) 10 ml IV PRN PRN PRN Reason: LINE FLUSH Physical Examination - Vital Signs Vital Signs: Vital Signs Temp Pulse Resp BP Pulse Ox 98.0 F 65 20 148/57 99 08/29/21 08:13 08/29/21 08:13 08/29/21 08:13 08/29/21 08:13 08/29/21 08:13 Results - Laboratory Findings CBC and BMP: 08/29/21 09:00 08/29/21 09:00 Abnormal Lab Findings: Abnormal Labs 08/29/21 08/29/21 08/29/21 09:00 09:00 09:00 MCV 100 H MCH 34 H [place] % (Auto) 10.2 H Eos % (Auto) 6.3 H Glucose 109 H Total Creatine Kinase 463 H 467 H CK-MB (CK-2) 11.7 H Assessment and Plan Assessment and Plan Advance Directives: Yes - Patient Problems (1) Cervical radiculopathy Current Visit: Yes Status: Acute Plan to address problem: Patient may be having cervical radiculopathy versus cervical myelopathy MRI C-spine Neurology consult requested MRI brain order was removed Clinical picture does not fit with any brain lesion (2) Unsteady gait Current Visit: Yes Status: Acute Plan to address problem: Rule out cervical myelopathy and radiculopathy (3) COVID-19 vaccine administered Current Visit: Yes Status: Acute Plan to address problem: Patient had COVID-19 vaccination (4) T2DM (type 2 diabetes mellitus) Current Visit: Yes Status: Acute Plan to address problem: Coverage for now and check hemoglobin A1c (5) Hypertension Current Visit: Yes Status: Chronic Qualifiers: Hypertension type: primary hypertension Qualified Code(s): I10 - Essential (primary) hypertension Plan to address problem: Continue atenolol and adjust medications as necessary (6) Chronic pain Current Visit: Yes Status: Chronic Qualifiers: Chronic pain type: chronic pain syndrome Qualified Code(s): G89.4 - Chronic pain syndrome Plan to address problem: Pain medication as needed Patient to follow-up with pain management as outpatient (7) DVT prophylaxis Current Visit: Yes Status: Acute Plan to address problem: On anticoagulation and GI prophylaxis
--- NOTE | 2021-08-30 10:11 | Progress Note ---
Assessment and Plan Assessment and plan: (1) Cervical radiculopathy Current Visit: Yes Status: Acute Plan to address problem: Patient may be having cervical radiculopathy versus cervical myelopathy MRI C-spine Neurology consult requested MRI brain order was removed Clinical picture does not fit with any brain lesion (2) Unsteady gait Current Visit: Yes Status: Acute Plan to address problem: Rule out cervical myelopathy and radiculopathy (3) COVID-19 vaccine administered Current Visit: Yes Status: Acute Plan to address problem: Patient had COVID-19 vaccination (4) T2DM (type 2 diabetes mellitus) Current Visit: Yes Status: Acute Plan to address problem: Coverage for now and check hemoglobin A1c (5) Hypertension Current Visit: Yes Status: Chronic Qualifiers: Hypertension type: primary hypertension Qualified Code(s): I10 - Essential (primary) hypertension Plan to address problem: Continue atenolol and adjust medications as necessary (6) Chronic pain Current Visit: Yes Status: Chronic Qualifiers: Chronic pain type: chronic pain syndrome Qualified Code(s): G89.4 - Chronic pain syndrome Plan to address problem: Pain medication as needed Patient to follow-up with pain management as outpatient (7) DVT prophylaxis Current Visit: Yes Status: Acute Plan to address problem: On anticoagulation and GI prophylaxis Hospitalist Physical - Constitutional Vitals: Temp Pulse Resp BP Pulse Ox 98.0 F 58 L 18 154/57 100 08/29/21 08:13 08/29/21 10:59 08/29/21 10:59 08/29/21 10:59 08/29/21 10:59 General appearance: Present: no acute distress, well-nourished HEART Score - HEART Score Troponin: Troponin T < 0.010 ng/mL (0.00-0.029) 08/29/21 09:00 Results - Labs CBC & Chem 7: 08/29/21 09:00 08/29/21 09:00 Labs: Laboratory Last Values WBC 4.9 K/mm3 (4.5-11.0) 08/29/21 09:00 RBC 4.35 M/mm3 (3.65-5.03) 08/29/21 09:00 Hgb 14.8 gm/dl (11.8-15.2) 08/29/21 09:00 Hct 43.3 % (35.5-45.6) 08/29/21 09:00 MCV 100 fl (84-94) H 08/29/21 09:00 MCH 34 pg (28-32) H 08/29/21 09:00 MCHC 34 % (32-34) 08/29/21 09:00 RDW 13.2 % (13.2-15.2) 08/29/21 09:00 Plt Count 241 K/mm3 (140-440) 08/29/21 09:00 Lymph % (Auto) 28.1 % (13.4-35.0) 08/29/21 09:00 [place] % (Auto) 10.2 % (0.0-7.3) H 08/29/21 09:00 Eos % (Auto) 6.3 % (0.0-4.3) H 08/29/21 09:00 Baso % (Auto) 0.3 % (0.0-1.8) 08/29/21 09:00 Lymph # (Auto) 1.4 K/mm3 (1.2-5.4) 08/29/21 09:00 [place] # (Auto) 0.5 K/mm3 (0.0-0.8) 08/29/21 09:00 Eos # (Auto) 0.3 K/mm3 (0.0-0.4) 08/29/21 09:00 Baso # (Auto) 0.0 K/mm3 (0.0-0.1) 08/29/21 09:00 Seg Neutrophils % 55.1 % (40.0-70.0) 08/29/21 09:00 Seg Neutrophils # 2.7 K/mm3 (1.8-7.7) 08/29/21 09:00 PT 12.5 Sec. (12.2-14.9) 08/29/21 09:00 INR 0.89 (0.87-1.13) 08/29/21 09:00 APTT 34.6 Sec. (24.2-36.6) 08/29/21 09:00 Thrombin Time 15.8 Sec. (15.1-19.6) 08/29/21 09:00 Sodium 138 mmol/L (137-145) 08/29/21 09:00 Potassium 5.0 mmol/L (3.6-5.0) 08/29/21 09:00 Chloride 101.6 mmol/L (98-107) 08/29/21 09:00 Carbon Dioxide 25 mmol/L (22-30) 08/29/21 09:00 Anion Gap 16 mmol/L 08/29/21 09:00 BUN 10 mg/dL (9-20) 08/29/21 09:00 Creatinine 0.8 mg/dL (0.8-1.3) 08/29/21 09:00 Estimated GFR > 60 ml/min 08/29/21 09:00 BUN/Creatinine Ratio 13 % 08/29/21 09:00 Glucose 109 mg/dL (75-100) H 08/29/21 09:00 Calcium 9.8 mg/dL (8.4-10.2) 08/29/21 09:00 Magnesium 2.20 mg/dL (1.7-2.3) 08/29/21 09:00 Total Bilirubin 0.30 mg/dL (0.1-1.2) 08/29/21 09:00 AST 27 units/L (5-40) 08/29/21 09:00 ALT 24 units/L (7-56) 08/29/21 09:00 Alkaline Phosphatase 82 units/L (35-129) 08/29/21 09:00 Total Creatine Kinase 463 units/L (55-170) H 08/29/21 09:00 Total Creatine Kinase 467 units/L (55-170) H 08/29/21 09:00 CK-MB (CK-2) 11.7 ng/mL (0.0-4.0) H 08/29/21 09:00 CK-MB (CK-2) Rel Index 2.5 (0-4) 08/29/21 09:00 Troponin T < 0.010 ng/mL (0.00-0.029) 08/29/21 09:00 Total Protein 8.0 g/dL (6.3-8.2) 08/29/21 09:00 Albumin 4.6 g/dL (3.9-5) 08/29/21 09:00 Albumin/Globulin Ratio 1.4 % 08/29/21 09:00 TSH 0.333 mlU/mL (0.270-4.200) 08/29/21 09:00 Urine Color Yellow (Yellow) 08/29/21 Unknown Urine Turbidity Clear (Clear) 08/29/21 Unknown Urine pH 5.0 (5.0-7.0) 08/29/21 Unknown Ur Specific [place] 1.020 (1.003-1.030) 08/29/21 Unknown Urine Protein <15 mg/dl mg/dL (Negative) 08/29/21 Unknown Urine Glucose (UA) Neg mg/dL (Negative) 08/29/21 Unknown Urine Ketones Neg mg/dL (Negative) 08/29/21 Unknown Urine Blood Neg (Negative) 08/29/21 Unknown Urine Nitrite Neg (Negative) 08/29/21 Unknown Urine Bilirubin Neg (Negative) 08/29/21 Unknown Urine Urobilinogen < 2.0 mg/dL (<2.0) 08/29/21 Unknown Ur Leukocyte Esterase Neg (Negative) 08/29/21 Unknown Urine WBC (Auto) 2.0 /HPF (0.0-6.0) 08/29/21 Unknown Urine RBC (Auto) 1.0 /HPF (0.0-6.0) 08/29/21 Unknown U Epithel Cells (Auto) < 1.0 /HPF (0-13.0) 08/29/21 Unknown Urine Mucus 2+ /HPF 08/29/21 Unknown Urine Opiates Screen Negative 08/29/21 Unknown Urine Methadone Screen Negative 08/29/21 Unknown Ur Barbiturates Screen Negative 08/29/21 Unknown Ur Phencyclidine Scrn Negative 08/29/21 Unknown Ur Amphetamines Screen Negative 08/29/21 Unknown U Benzodiazepines Scrn Negative 08/29/21 Unknown Urine Cocaine Screen Negative 08/29/21 Unknown U Marijuana (THC) Screen Presumptive positive 08/29/21 Unknown Drugs of Abuse Note Disclamer 08/29/21 Unknown Plasma/Serum Alcohol < 0.01 % (0-0.07) 08/29/21 09:00 Active Medications - Current Medications Current Medications: Generic Name Dose Route Start Last Admin Trade Name Freq PRN Reason Stop Dose Admin Atenolol 50 mg 08/29/21 19:00 Atenolol 50 Mg Tab PO DAILY [facility] Atorvastatin Calcium 40 mg 08/29/21 18:00 Atorvastatin 40 Mg Tab PO QHS [facility] Cyclobenzaprine HCl 10 mg 08/29/21 18:20 Cyclobenzaprine 10 Mg Tab PO Q8H PRN Muscle Spasm Dextrose 50 ml 08/29/21 17:48 Dextrose 50% In Water (25gm) 50 Ml Syringe IV Q30MIN PRN Hypoglycemia Protocol Famotidine 40 mg 08/29/21 22:00 Famotidine 20 Mg Tab PO QHS [facility] Heparin Sodium (Porcine) 5,000 unit 08/29/21 22:00 Heparin 5,000 Unit/1 Ml Vial SUB-Q Q8HR [facility] Ibuprofen 400 mg 08/29/21 17:54 Ibuprofen 400 Mg Tab PO Q6H PRN Pain, Mild (1-3) Insulin Human Lispro 0 unit 08/29/21 22:00 Insulin Lispro 100 Unit/Ml SUB-Q ACHS [facility] Protocol Naloxone HCl 0.1 mg 08/29/21 17:48 Naloxone 0.4 Mg/1 Ml Inj IV Q2MIN PRN Res Rate </= 8 or 02 SAT < 92% Ondansetron HCl 4 mg 08/29/21 17:48 Ondansetron 4 Mg/2 Ml Inj IV Q8H PRN Nausea And Vomiting Sodium Chloride 10 ml 08/29/21 22:00 Sodium Chloride 0.9% 10 Ml Flush Syringe IV BID [facility] Sodium Chloride 10 ml 08/29/21 17:48 Sodium Chloride 0.9% 10 Ml Flush Syringe IV PRN PRN LINE FLUSH
--- NOTE | 2021-08-31 10:09 | Electrocardiograph Report ---
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
--- NOTE | 2021-09-12 07:09 | Discharge Summary ---
Providers - Providers Date of Admission: 08/29/21 10:39 Date of discharge: 09/04/21 Attending physician: MILA MOORE 08/29/21 17:48 Consult to Physician [CONS] Routine Comment: Consulting Provider: REJI WINSTON Physician Instructions: Reason For Exam: cva Primary care physician: [employer] Hospitalization Reason for admission: Bilateral hand numbness 3 to 4 days Condition: Good Hospital course: 61-year-old male with history of hypertension, diabetes, chronic pain and GERD comes in for bilateral hand numbness for 2 to 3 days. Also shortness of breath sometimes. No nausea no vomiting. He also feels unsteady on his feet for about a week. He denies any bladder or bowel retention/incontinence and as well as/saddle anesthesia. Patient is COVID-19 vaccinated. On 08/30/2021 morning I could not find the patient either on the floor or in the ED. Nurse reported to me that patient left AMA/eloped. Please refer to medical records for details I have not seen the patient. 1) Cervical radiculopathy Current Visit: Yes Status: Acute Plan to address problem: Patient may be having cervical radiculopathy versus cervical myelopathy MRI C-spine Neurology consult requested MRI brain order was removed Clinical picture does not fit with any brain lesion (2) Unsteady gait Current Visit: Yes Status: Acute Plan to address problem: Rule out cervical myelopathy and radiculopathy (3) COVID-19 vaccine administered Current Visit: Yes Status: Acute Plan to address problem: Patient had COVID-19 vaccination (4) T2DM (type 2 diabetes mellitus) Current Visit: Yes Status: Acute Plan to address problem: Coverage for now and check hemoglobin A1c (5) Hypertension Current Visit: Yes Status: Chronic Qualifiers: Hypertension type: primary hypertension Qualified Code(s): I10 - Essential (primary) hypertension Plan to address problem: Continue atenolol and adjust medications as necessary (6) Chronic pain Current Visit: Yes Status: Chronic Qualifiers: Chronic pain type: chronic pain syndrome Qualified Code(s): G89.4 - Chronic pain syndrome Plan to address problem: Pain medication as needed Patient to follow-up with pain management as outpatient (7) DVT prophylaxis Current Visit: Yes Status: Acute Plan to address problem: On anticoagulation and GI prophylaxis Nurse reports that patient eloped/left AMA I have not seen the patient Disposition: 07 LEFT AWOL/ELOPED Final Discharge Diagnosis (Prints w/discharge instructions): Cervical radiculopathy. Unsteady gait. Diabetes mellitus. Hypertension Time spent for discharge: 32 min Core Measure Documentation - Palliative Care Palliative Care/ Comfort Measures: Not Applicable - Core Measures Any of the following diagnoses?: none Exam - Physical Exam Narrative exam: I have not seen the patient/nurse reports patient eloped/left AMA - Constitutional Vitals: Temp Pulse Resp BP Pulse Ox 98.0 F 58 L 18 154/57 100 08/29/21 08:13 08/29/21 10:59 08/29/21 10:59 08/29/21 10:59 08/29/21 10:59 Plan Additional Instructions: Nurse reports that patient eloped/left AMA. I have not seen the patient Follow up with: PRIMARY CARE, [Primary Care Provider] - 3-5 Days
== END 2021-08-29 15:56 | disposition left against medical advice (07) ==
LOC: ED 08:06 → 3A 10:39
PROVIDERS: ADMIT Internal Medicine; ATTEND Internal Medicine
DX: M54.12 Radiculopathy, cervical region (principal); R26.81 Unsteadiness on feet; R20.0 Anesthesia of skin; E11.9 Type 2 diabetes mellitus without complications; I10 Essential (primary) hypertension; K21.9 Gastro-esophageal reflux disease without esophagitis; F17.200 Nicotine dependence, unspecified, uncomplicated; F12.10 Cannabis abuse, uncomplicated; G89.29 Other chronic pain; M54.9 Dorsalgia, unspecified; Z79.899 Other long term (current) drug therapy
CPT/HCPCS: 36415; 70450; 71046; 80053; 80307; 81001; 82550; 82553; 83735; 84443; 84484; 85025; 85610; 85670; 85730; 93005; 99285; G0378; 80320; G0480